=== PATIENT | female | born 1930 | race Caucasian/White ===

== ENCOUNTER 2017-03-26 17:57 | Inpatient (IN) | payer MEDICARE ==
[2017-03-26] MEDS ORDERED: DUONEB 0.5-3 MG/3 ml Neb IH ONE ×2 (19:01→19:37)
[2017-03-26] MEDS ORDERED: Sodium Chloride 0.9% 1000 ML 1,000 ML IV STA (19:01)
[2017-03-26 19:09] LABS: Mean Cell Volume 86.9 fl (78-100); Mean Platelet Volume 8.6 fl (6-9.5); Platelet Count 196 K/mm3 (150-450); Red Blood Count 3.88 M/mm3 (4.1-5.4); Red Cell Distribution Width 12.7 % (11.5-14.0); White Blood Count 8.8 K/mm3 (4.0-10.5)
[2017-03-26] MEDS ORDERED: Sodium Chloride 0.9% 1000 ML 1,000 ML ONE (19:09)
[2017-03-26 19:24] LABS: INR 1.22 (0.8-3.0); PROTIME 13.6 SECONDS (9.95-12.35)
--- NOTE | 2017-03-26 19:26 | ERPHSYRPT ---
- History of Present Illness Time Seen by Provider: 03/26/17 19:15 Source: patient, other (daughter) Exam Limitations: no limitations Patient Subjective Stated Complaint: PT states "I have a horrible cough and a bit of a hard time breathing." Triage Nursing Assessment: Pt alert and oriented X 3, skin pwd. Pt ambulates weakly with assistance, coughing, moaning, very hard of hearing, able to speak in clear full sentences Physician History: Pt is ex smoker, started coughing few days ago, coughed up phlegm, started having fever tonight according to her daughter. She is alert and oriented but has difficulty hearing, denies chest pain, vomiting, diarrhea, severe headaches , other complaints. She has slight difficulty breathing, but no severe distress , she has a history of heart murmurs, denies TX, CAD, CHF, other cardiac problems. Timing/Duration: day(s) (4) Activities at Onset: none Severity of Dyspnea-Max: moderate Severity of Dyspnea-Current: mild Possible Cause: occasional episodes Modifying Factors: Improves With: activity Associated Symptoms: cough, fever, loss of appetite, weakness Allergies/Adverse Reactions: No Known Drug Allergies Allergy (Verified 11/10/11 14:08) Home Medications: Diltiazem HCl 240 mg [Cardizem CD 240 MG] 240 mg PO DAILY 11/11/11 [History] Metoprolol Succinate 25 mg Xl* [Toprol-Xl 25MG Tablets] 25 mg PO BID 11/11/11 [ History] Multivitamin [Daily Multiple Vitamin] 1 tab PO DAILY 01/05/12 [History] Hx Tetanus, Diphtheria Vaccination/Date Given: No Hx Influenza Vaccination/Date Given: No Hx Pneumococcal Vaccination/Date Given: No Immunizations Up to Date: Yes - Review of Systems Constitutional: Fever, Chills Respiratory: Cough, Dyspnea, Wheezing Cardiac: No Symptoms All Other Systems: Reviewed and Negative - Past Medical History Pertinent Past Medical History: Yes Neurological History: No Pertinent History ENT History: Cataracts Cardiac History: Hypertension Respiratory History: Emphysema Endocrine Medical History: No Pertinent History Musculoskeletal History: Osteoarthritis, Osteoporosis GI Medical History: No Pertinent History History: No Pertinent History Psycho-Social History: No Pertinent History Female Reproductive Disorders: No Pertinent History - Past Surgical History Past Surgical History: No Neuro Surgical History: No Pertinent History Cardiac: No Pertinent History Respiratory: No Pertinent History Gastrointestinal: No Pertinent History Genitourinary: No Pertinent History Musculoskeletal: Amputation Female Surgical History: No Pertinent History - Social History Smoking Status: Former smoker Exposure to second hand smoke: No Drug Use: none Patient Lives Alone: Yes - Female History Hx Last Menstrual Period: none - Nursing Vital Signs Nursing Vital Signs: Initial Vital Signs Temperature 99.9 F 03/26/17 18:36 Pulse Rate 124 H 03/26/17 18:36 Respiratory Rate 20 03/26/17 18:36 Blood Pressure 127/73 03/26/17 18:36 O2 Sat by Pulse Oximetry 92 L 03/26/17 18:36 Pain Scale Pain Intensity 0 - Physical Exam General Appearance: no apparent distress Eye Exam: eyes nml inspection Ears, Nose, Throat Exam: normal ENT inspection, normal pharynx Neck Exam: normal inspection, non-tender, supple, No JVD Respiratory Exam: crackles/rales, rhonchi (diffuse, over both lower lung contreras) , No chest tenderness Cardiovascular/Chest Exam: murmur (2/6 left parasternal, systolic) Abdominal/Gastrointestinal Exam: soft, normal bowel sounds, No tenderness, No distention, No mass Extremity Exam: non-tender, No no calf tenderness, No no pedal edema Neurologic Exam: alert, oriented x 3, cooperative, normal mood/affect Skin Exam: normal color, warm, dry, No rash Lymphatic Exam: No adenopathy SpO2 Interpretation: borderline oxygenation SpO2: 92 Oxygen Delivery: Room Air - Course Nursing assessment & vital signs reviewed: Yes EKG Interpreted by Me: RATE, Sinus Tach, NORMAL AXIS, Non-specific ST Changes - Radiology Exams Chest X-ray Interpretation: Interpreted by me, No Pneumonia, No Pneumothorax, No Infiltrates Ordered Tests: Active Orders 24 hr Category Date Time Status Field Service Engineer STAT Care 03/26/17 19:00 Active EKG-ER Only STAT Care 03/26/17 19:02 Active Dunne [Catheter-Echo Dunne] STAT Care 03/26/17 20:34 Active IV Insertion STAT Care 03/26/17 19:00 Active Oxygen-ED Only VENTI-MASK 28% Care 03/26/17 21:01 Active Pulse Oximetry (ED) STAT Care 03/26/17 19:00 Active CHEST 1 VIEW (PORTABLE) Stat Exams 03/26/17 19:01 Taken BLOOD CULTURE Stat Lab 03/26/17 19:30 Received BNP [NT PRO BNP] Stat Lab 03/26/17 19:20 Completed CBC W DIFF Stat Lab 03/26/17 18:55 Completed CMP Stat Lab 03/26/17 18:55 Completed CULTURE,URINE Stat Lab 03/26/17 19:00 Ordered Lactic Acid Stat Lab 03/26/17 19:30 Completed Manual Differential NC Stat Lab 03/26/17 18:55 Completed PROTIME WITH INR Stat Lab 03/26/17 18:55 Completed PTT Stat Lab 03/26/17 18:55 Completed TROPONIN Q3H Lab 03/26/17 20:00 Completed TROPONIN Q3H Lab 03/26/17 22:30 Ordered UA Stat Lab 03/26/17 19:00 Ordered Oxygen NASAL CANNULA 2 lpm RT 03/26/17 21:02 Active Respiratory Nebulizer STAT RT 03/26/17 19:02 Active Medication Summary Generic Name Dose Route Start Last Admin Trade Name Freq PRN Reason Stop Dose Admin Potassium Chloride 40 meq 03/27/17 10:00 03/26/17 21:17 Potassium Chl 40 Meq/30 Ml Oral Solution PO 04/26/17 09:59 40 meq DAILY WANDER Administration Discontinued Medications Generic Name Dose Route Start Last Admin Trade Name Freq PRN Reason Stop Dose Admin Albuterol/Ipratropium 3 ml 03/26/17 19:01 03/26/17 19:39 Duoneb 0.5-3 Mg/3 Ml Neb IH 03/26/17 19:02 3 ml STAT ONE Administration Albuterol/Ipratropium Confirm 03/26/17 19:37 Duoneb 0.5-3 Mg/3 Ml Neb Administered 03/26/17 19:38 Dose 3 ml IH .STK-MED ONE Furosemide 40 mg 03/26/17 20:57 03/26/17 21:17 Lasix 40 Mg/4 Ml IV 03/26/17 20:58 40 mg STAT ONE Administration Furosemide Confirm 03/26/17 21:09 Lasix 40 Mg/4 Ml Administered 03/26/17 21:10 Dose 40 mg .ROUTE .STK-MED ONE Sodium Chloride 1,000 mls @ 999 mls/hr 03/26/17 19:01 03/26/17 19:12 Sodium Chloride 0.9% 1000 Ml IV 03/26/17 20:01 999 mls/hr .Q1H1M STA Administration Sodium Chloride Confirm 03/26/17 19:09 Sodium Chloride 0.9% 1000 Ml Administered 03/26/17 19:10 Dose 1,000 mls @ ud .ROUTE .STK-MED ONE Ceftriaxone Sodium/Dextrose 1 g in 50 mls @ 100 mls/hr 03/26/17 20:10 20:16 Rocephin 1 Gm-D5w 50 Ml Bag IV 03/26/17 20:39 100 mls/hr STAT STA Administration Azithromycin 500 mg in 250 mls @ 250 mls/hr 03/26/17 20:10 Zithromax 500 Mg/ 250 Ml Nacl Premix IV 03/26/17 21:09 STAT STA Azithromycin Confirm 03/26/17 20:13 Zithromax 500 Mg/ 250 Ml Nacl Premix Administered 03/26/17 20:14 Dose 500 mg in 250 mls @ ud IV .STK-MED ONE Ceftriaxone Sodium/Dextrose Confirm 03/26/17 20:13 Rocephin 1 Gm-D5w 50 Ml Bag Administered 03/26/17 20:14 Dose 1 g in 50 mls @ ud IV .STK-MED ONE Azithromycin Confirm 03/26/17 21:12 Zithromax 500 Mg/ 250 Ml Nacl Premix Administered 03/26/17 21:13 Dose 500 mg in 250 mls @ ud IV .STK-MED ONE Methylprednisolone Sodium Succinate 125 mg 03/26/17 20:09 03/26/17 20:16 Solu-Medrol 125 Mg IV 03/26/17 20:10 125 mg STAT ONE Administration Methylprednisolone Sodium Succinate Confirm 03/26/17 20:12 Solu-Medrol 125 Mg Administered 03/26/17 20:13 Dose 125 mg .ROUTE .STK-MED ONE Potassium Chloride Confirm 03/26/17 21:12 Klor Con 10 Meq Administered 03/26/17 21:13 Dose 30 meq PO .STK-MED ONE Lab/Rad Data: Laboratory Result Diagrams 03/26/17 18:55 03/26/17 18:55 Laboratory Results 03/26/17 03/26/17 03/26/17 Range/Units 20:00 19:30 19:30 WBC (4.0-10.5) K/mm3 RBC (4.1-5.4) M/mm3 Hgb (12.0-16.0) gm/dl Hct (35-47) % MCV (78-100) fl MCH (26-32) pg MCHC (32-36) g/dl RDW (11.5-14.0) % Plt Count (150-450) K/mm3 MPV (6-9.5) fl Segmented Neutrophils (36.0-66.0) % Lymphocytes (Manual) (24-44) % Monocytes (Manual) (0.0-12.0) % Differential Comment Platelet Estimate (NORMAL) INR (0.8-3.0) APTT (25.3-37.0) SECONDS Sodium (136-145) mEq/L Potassium (3.5-5.1) mEq/L Chloride (98-107) mEq/L Carbon Dioxide (21-32) mEq/L Anion Gap (5-15) MEQ/L BUN (9-20) mg/dL Creatinine (0.55-1.30) mg/dl Estimated GFR ML/MIN Glucose (70-110) MG/DL Lactic Acid 1.0 (0.4-2.0) Calcium (8.5-10.1) mg/dL Total Bilirubin (0.2-1.0) mg/dL AST (15-37) U/L ALT (12-78) U/L Alkaline Phosphatase (46-116) U/L Troponin I < 0.017 (0.000-0.056) ng/ml NT-Pro-B Natriuret Pep (0-450) pg/ml Serum Total Protein (6.4-8.2) gm/dL Albumin (3.4-5.0) g/dL Influenza Type A Ag NEGATIVE (NEGATIVE) Influenza Type B Ag NEGATIVE (NEGATIVE) RSV (PCR) NEGATIVE (Negative) 03/26/17 03/26/17 03/26/17 Range/Units 19:20 18:55 18:55 WBC (4.0-10.5) K/mm3 RBC (4.1-5.4) M/mm3 Hgb (12.0-16.0) gm/dl Hct (35-47) % MCV (78-100) fl MCH (26-32) pg MCHC (32-36) g/dl RDW (11.5-14.0) % Plt Count (150-450) K/mm3 MPV (6-9.5) fl Segmented Neutrophils (36.0-66.0) % Lymphocytes (Manual) (24-44) % Monocytes (Manual) (0.0-12.0) % Differential Comment Platelet Estimate (NORMAL) INR 1.22 (0.8-3.0) APTT 26.0 (25.3-37.0) SECONDS Sodium 130 L (136-145) mEq/L Potassium 3.1 L (3.5-5.1) mEq/L Chloride 95 L (98-107) mEq/L Carbon Dioxide 26.6 (21-32) mEq/L Anion Gap 11.1 (5-15) MEQ/L BUN 15 (9-20) mg/dL Creatinine 0.80 (0.55-1.30) mg/dl Estimated GFR > 60 ML/MIN Glucose 169 H (70-110) MG/DL Lactic Acid (0.4-2.0) Calcium 8.8 (8.5-10.1) mg/dL Total Bilirubin 1.60 H (0.2-1.0) mg/dL AST 17 (15-37) U/L ALT 10 L (12-78) U/L Alkaline Phosphatase 100 (46-116) U/L Troponin I (0.000-0.056) ng/ml NT-Pro-B Natriuret Pep 3056 H (0-450) pg/ml Serum Total Protein 7.5 (6.4-8.2) gm/dL Albumin 2.8 L (3.4-5.0) g/dL Influenza Type A Ag (NEGATIVE) Influenza Type B Ag (NEGATIVE) RSV (PCR) (Negative) 03/26/17 Range/Units 18:55 WBC 8.8 (4.0-10.5) K/mm3 RBC 3.88 L (4.1-5.4) M/mm3 Hgb 11.4 L (12.0-16.0) gm/dl Hct 33.7 L (35-47) % MCV 86.9 (78-100) fl MCH 29.3 (26-32) pg MCHC 33.8 (32-36) g/dl RDW 12.7 (11.5-14.0) % Plt Count 196 (150-450) K/mm3 MPV 8.6 (6-9.5) fl Segmented Neutrophils 84 H (36.0-66.0) % Lymphocytes (Manual) 9 L (24-44) % Monocytes (Manual) 7 (0.0-12.0) % Differential Comment NORMAL Platelet Estimate NORMAL (NORMAL) INR (0.8-3.0) APTT (25.3-37.0) SECONDS Sodium (136-145) mEq/L Potassium (3.5-5.1) mEq/L Chloride (98-107) mEq/L Carbon Dioxide (21-32) mEq/L Anion Gap (5-15) MEQ/L BUN (9-20) mg/dL Creatinine (0.55-1.30) mg/dl Estimated GFR ML/MIN Glucose (70-110) MG/DL Lactic Acid (0.4-2.0) Calcium (8.5-10.1) mg/dL Total Bilirubin (0.2-1.0) mg/dL AST (15-37) U/L ALT (12-78) U/L Alkaline Phosphatase (46-116) U/L Troponin I (0.000-0.056) ng/ml NT-Pro-B Natriuret Pep (0-450) pg/ml Serum Total Protein (6.4-8.2) gm/dL Albumin (3.4-5.0) g/dL Influenza Type A Ag (NEGATIVE) Influenza Type B Ag (NEGATIVE) RSV (PCR) (Negative) - Progress Progress: improved Air Movement: fair Progress Note: 03/26/17 21:30 Pt states, she feels better, she is slightly more tachypneic after 1000 ml NS, O2 sat: 92 %, started on nasal O2, iv antibiotics, she is afebrile, denies chest pain, no severe SOB or distress. I called Dr Harman, discussed this patients current condition and results, he agreed to admit her to regular Telemetry bed. I informed her and her family, they agreed. Discussed with : Kimani Will see patient in: hospital (full admit) - Departure Time of Disposition: 21:32 Departure Disposition: In-patient Admission Clinical Impression: Pneumonia Qualifiers: Pneumonia type: due to unspecified organism Laterality: unspecified laterality Lung location: unspecified part of lung Qualified Code(s): J18.9 - Pneumonia, unspecified organism CHF (congestive heart failure) Qualifiers: Congestive heart failure type: combined Congestive heart failure chronicity: acute Qualified Code(s): I50.41 - Acute combined systolic (congestive) and diastolic (congestive) heart failure Condition: Fair Critical Care Time: Yes Critical Care Time(excluding separately billable procedures): 30-74 minutes Referrals: LAYO ORTEGA [Primary Care Provider] - Instructions: Heart Failure
[2017-03-26 19:43] LABS: ALBUMIN 2.8 g/dL (3.4-5.0); ALKALINE PHOSPHATASE 100 U/L (46-116); ANION GAP 11.1 MEQ/L (5-15); BLOOD UREA NITROGEN 15 mg/dL (9-20); CHLORIDE 95 mEq/L (98-107); Carbon Dioxide 26.6 mEq/L (21-32); Glucose 169 MG/DL (70-110); Potassium 3.1 mEq/L (3.5-5.1); SGOT/AST 17 U/L (15-37); SGPT/ALT 10 U/L (12-78); SODIUM 130 mEq/L (136-145); Total Protein 7.5 gm/dL (6.4-8.2)
[2017-03-26 19:44] LABS: Mean Corpuscular Hemoglobin 29.3 pg (26-32)
[2017-03-26] MEDS ORDERED: solu-MEDROL 125 MG IV ONE (20:09)
[2017-03-26] MEDS ORDERED: Zithromax 500 MG/ 250 ML NaCl Premix 500 MG/250 ML IVPB IV STA (20:10)
[2017-03-26] MEDS ORDERED: ROCEPHIN 1 Gm-D5w 50 ml Bag** 1 G/50 ML IVPB IV STA (20:10)
[2017-03-26] MEDS ORDERED: solu-MEDROL 125 MG ONE (20:12)
[2017-03-26] MEDS ORDERED: Zithromax 500 MG/ 250 ML NaCl Premix 500 MG/250 ML IVPB IV ONE (20:13)
[2017-03-26] MEDS ORDERED: ROCEPHIN 1 Gm-D5w 50 ml Bag** 1 G/50 ML IVPB IV ONE (20:13)
[2017-03-26 20:45] LABS: Platelet Estimate NORMAL (NORMAL); Total Cells Counted 100
[2017-03-26] MEDS ORDERED: Lasix 40 MG/4 ML IV ONE (20:57)
[2017-03-26] MEDS ORDERED: Lasix 40 MG/4 ML ONE (21:09)
[2017-03-26] MEDS ORDERED: Zithromax 500 MG/ 250 ML NaCl Premix 0 MG/0 ML IVPB IV ONE (21:12)
[2017-03-26] MEDS ORDERED: Klor Con 10 MEQ PO ONE (21:12)
[2017-03-26] MEDS ORDERED: TYLENOL 325 MG PO PRN (21:38)
[2017-03-26 21:41] LABS: Bilirubin NEGATIVE (NEGATIVE); Blood TRACE NON-HEM Ery/ul (0-5); COMPLETE URINE MICROSCOPIC? YES; Collection Type CCMS; Glucose NEGATIVE (NEGATIVE); Leukocyte Esterase TRACE (NEGATIVE)
[2017-03-26 21:44] LABS: Bacteria FEW /HPF (NEGATIVE); Epithelial Cells FEW /HPF (FEW); Mucus SLIGHT /HPF (NEGATIVE); WBC 15-25 /HPF (0-5)
--- NOTE | 2017-03-26 22:29 | XRAY ---
Indication: Possible sepsis. Comparison: October 22, 2007. Portable chest now demonstrates mild right lung volume loss with right infrahilar infiltrate/atelectasis. Lesser new left infrahilar infiltrate/atelectasis. No large effusion. Heart is not enlarged for AP portable technique. Bony thorax intact again without osteopenia and degenerative changes. Impression: New bilateral infrahilar infiltrates versus atelectasis. Correlate clinically.
[2017-03-27 06:27] LABS: Mean Cell Volume 87.5 fl (78-100); Mean Platelet Volume 8.9 fl (6-9.5); Platelet Count 212 K/mm3 (150-450); Red Blood Count 3.91 M/mm3 (4.1-5.4); Red Cell Distribution Width 12.7 % (11.5-14.0); White Blood Count 7.3 K/mm3 (4.0-10.5)
[2017-03-27 06:48] LABS: Mean Corpuscular Hemoglobin 29.6 pg (26-32)
[2017-03-27 06:53] LABS: ANION GAP 13.1 MEQ/L (5-15); BLOOD UREA NITROGEN 14 mg/dL (9-20); CHLORIDE 95 mEq/L (98-107); Carbon Dioxide 27.7 mEq/L (21-32); Glucose 214 MG/DL (70-110); Potassium 3.4 mEq/L (3.5-5.1); SODIUM 132 mEq/L (136-145)
--- NOTE | 2017-03-27 09:08 | PCM.HP ---
History of Present Illness - Chief Complaint Chief Complaint: UTI, Pneumonia History of Present Illness: is a 86 year old female who presented to the emergency department complaining of nonproductive cough and difficulty breathing. She has been unable to produce sputum, no fever, denies vomiting or diarrhea. Denies urinary hesitancy, frequency or dysuria. Has a known murmur and sees Dr Gomes but no hx of chf or LA in the past. - Review of Systems Constitutional: No Fever, No Chills Respiratory: Cough, Short Of Breath Cardiac: No Chest Pain, No Edema Abdominal/Gastrointestinal: No Abdominal Pain, No Nausea, No Vomiting, No Diarrhea Skin: No Rash All Other Systems: Reviewed and Negative Medications & Allergies Home Medications: Home Medication List Diltiazem HCl 240 mg [Cardizem CD 240 MG] 240 mg PO DAILY 11/11/11 [History Confirmed 03/26/17] Metoprolol Succinate 25 mg Xl* [Toprol-Xl 25MG Tablets] 25 mg PO BID 11/11/11 [ History Confirmed 03/26/17] Multivitamin [Daily Multiple Vitamin] 1 tab PO DAILY 01/05/12 [History Confirmed 03/26/17] Allergies/Adverse Reactions: Allergies Allergy/AdvReac Type Severity Reaction Status Date / Time No Known Drug Allergies Allergy Verified 11/10/11 14:08 - Past Medical History Past Medical History: Yes Neurological History: No Pertinent History ENT History: Cataracts Cardiac History: Hypertension, Other Respiratory History: Emphysema Endocrine Medical History: No Pertinent History Musculoskelatal History: Osteoarthritis, Osteoporosis GI Medical History: No Pertinent History History: No Pertinent History Pyscho-Social History: No Pertinent History Reproductive Disorders: No Pertinent History Comment: heart murmur - Female History Hx Last Menstrual Period: none - Past Surgical History Past Surgical History: No Neuro Surgical History: No Pertinent History Cardiac History: No Pertinent History Respiratory Surgery: No Pertinent History GI Surgical History: No Pertinent History Genitourinary Surgical Hx: No Pertinent History Musculskeletal Surgical Hx: No Pertinent History Female Surgical History: No Pertinent History - Social History Smoking Status: Former smoker Exposure to second hand smoke: No Alcohol: Rarely Drug Use: none - Physical Exam Vital Signs: Vital Signs - 24 hr Temp Pulse Resp BP Pulse Ox 03/27/17 07:18 97.8 F 90 20 137/63 96 03/27/17 06:00 24 12/09/17 05:00 97.4 F 96 H 24 141/74 95 03/27/17 01:45 18 03/26/17 22:54 98.7 F 131 H 18 124/65 95 03/26/17 21:33 92 L 03/26/17 20:50 98.5 F 124 H 24 96 03/26/17 20:40 98.5 F 123 H 22 115/67 96 03/26/17 19:50 98.7 F 119 H 24 133/72 95 03/26/17 19:32 110 H 26 H 127/73 92 L 03/26/17 19:31 92 L 03/26/17 19:30 113 H 26 H 99 03/26/17 18:36 99.9 F 124 H 20 127/73 92 L Oxygen-Last 24 hours O2 Percentage 2 Liters = 28% O2 Percentage 2 Liters = 28% O2 Percentage 2 Liters = 28% O2 Percentage 2 Liters = 28% General Appearance: no apparent distress Neurologic Exam: alert, oriented x 3 Respiratory Exam: crackles/rales, rhonchi Cardiovascular Exam: regular rate/rhythm, normal heart sounds, normal peripheral pulses Gastrointestinal/Abdomen Exam: soft, normal bowel sounds, No tenderness, No mass Extremity Exam: normal inspection, normal range of motion, pelvis stable Results - Labs Lab/Micro Results: Lab Results-Last 24 Hours 03/27/17 03/27/17 Range/Units 05:20 05:20 WBC 7.3 (4.0-10.5) K/mm3 RBC 3.91 L (4.1-5.4) M/mm3 Hgb 11.6 L (12.0-16.0) gm/dl Hct 34.2 L (35-47) % MCV 87.5 (78-100) fl MCH 29.6 (26-32) pg MCHC 33.9 (32-36) g/dl RDW 12.7 (11.5-14.0) % Plt Count 212 (150-450) K/mm3 MPV 8.9 (6-9.5) fl Sodium 132 L (136-145) mEq/L Potassium 3.4 L (3.5-5.1) mEq/L Chloride 95 L (98-107) mEq/L Carbon Dioxide 27.7 (21-32) mEq/L Anion Gap 13.1 (5-15) MEQ/L BUN 14 (9-20) mg/dL Creatinine 0.72 (0.55-1.30) mg/dl Estimated GFR > 60 ML/MIN Glucose 214 H (70-110) MG/DL Calcium 8.8 (8.5-10.1) mg/dL NT-Pro-B Natriuret Pep 3349 H (0-450) pg/ml - Other Procedures and Tests Respiratory Therapy 03/26/17 23:35 RT Screen per Nursing Assess ONCE Assessment/Plan (1) Pneumonia Current Visit: Yes Status: Acute Qualifiers: Pneumonia type: due to unspecified organism Laterality: unspecified laterality Lung location: unspecified part of lung Qualified Code(s): J18.9 - Pneumonia, unspecified organism Assessment & Plan: continue rocephin and zithromax, clinically consistent with pneumonia. do not believe she has acute chf and no history of such, clinically not volume overloaded in spite of markedly elevated bnp. Code(s): J18.9 - PNEUMONIA, UNSPECIFIED ORGANISM (2) UTI (urinary tract infection) Current Visit: Yes Status: Acute Assessment & Plan: covering with rocephin, wait on urine culture Code(s): N39.0 - URINARY TRACT INFECTION, SITE NOT SPECIFIED
[2017-03-27] MEDS: Altace 1.25 MG PO SCH (09:16)
[2017-03-27] MEDS ORDERED: MULTIVITAMIN PO SCH (10:00)
[2017-03-27] MEDS ORDERED: FLUZONE HIGH-DOSE 2017-18 SYR IM ONE (10:00)
[2017-03-27] MEDS ORDERED: POTASSIUM CHL 40 MEQ/30 ML ORAL SOLUTION PO SCH (10:00)
[2017-03-27] MEDS ORDERED: POTASSIUM CHLORIDE 20 MEQ POWDER FOR ORAL SOL PO SCH (10:00)
[2017-03-27] MEDS ORDERED: Lasix 20 MG/2 ML IV SCH (10:00)
[2017-03-27] MEDS: ENOXAPARIN SODIUM SQ SCH (10:14)
[2017-03-27] MEDS: Toprol-Xl 25MG Tablets PO SCH ×2 (10:14→21:31)
[2017-03-27] MEDS: Cardizem CD 240 MG PO SCH (10:14)
[2017-03-27] MEDS: THERAGRAN MULTIVITAMIN PO SCH (10:14)
--- NOTE | 2017-03-27 11:25 | XRAY ---
Indication: CHF. Comparison: One day earlier. Portable chest unchanged again demonstrating infrahilar infiltrates/atelectasis again right greater than left. Heart is not enlarged for AP portable technique. No new cardiopulmonary abnormalities.
[2017-03-27] MEDS: ROCEPHIN 1 Gm-D5w 50 ml Bag** 1 G/50 ML IVPB IV SCH (19:47)
[2017-03-27] MEDS: Zithromax 500 MG/ 250 ML NaCl Premix 500 MG/250 ML IVPB IV SCH (21:31)
[2017-03-28 05:42] LABS: Eosinophil % 0.1 % (0.00-5.0); Granulocytes % 86.5 % (36.0-66.0); Lymphocytes % 6.9 % (24.0-44.0); Mean Cell Volume 87.7 fl (78-100); Mean Corpuscular Hemoglobin 29.2 pg (26-32); Monocytes % 6.5 % (0.0-12.0); Platelet Count 242 K/mm3 (150-450); Red Blood Count 3.73 M/mm3 (4.1-5.4); Red Cell Distribution Width 12.8 % (11.5-14.0); White Blood Count 11.7 K/mm3 (4.0-10.5)
[2017-03-28 06:10] LABS: ANION GAP 8.8 MEQ/L (5-15); BLOOD UREA NITROGEN 22 mg/dL (9-20); CHLORIDE 95 mEq/L (98-107); Carbon Dioxide 30.8 mEq/L (21-32); Glucose 118 MG/DL (70-110); MAGNESIUM 1.5 mg/dL (1.8-2.4); Potassium 3.1 mEq/L (3.5-5.1); SODIUM 132 mEq/L (136-145)
--- NOTE | 2017-03-28 08:19 | PCM.NOTE ---
Date and Time: 03/28/17814 Subjective Assessment: patient reports she is feeling a little better today. she is tolerating po intake. Objective Exam General Appearance: no apparent distress, alert Respiratory Exam: rhonchi Cardiovascular Exam: regular rate/rhythm Gastrointestinal/Abdomen Exam: soft, No tenderness, No mass Extremity Exam: normal inspection, normal range of motion OBJECTIVE DATA Vital Signs: Vital Signs - 24 hr Temp Pulse Resp BP Pulse Ox 03/28/17 07:20 98.5 F 66 22 103/57 96 03/28/17 04:00 97.5 F 77 17 108/55 98 03/28/17 00:00 20 03/27/17 23:46 86 20 94 L 03/27/17 23:18 97.9 F 77 20 115/56 97 03/27/17 20:00 20 03/27/17 19:51 98.1 F 90 20 118/58 98 03/27/17 17:00 97.5 F 83 18 115/57 95 03/27/17 12:00 18 03/27/17 10:59 98 F 119 H 18 125/66 96 03/27/17 10:00 18 Oxygen-Last 24 hours O2 Percentage 2 Liters = 28% O2 Percentage 2 Liters = 28% O2 Percentage 2 Liters = 28% O2 Percentage 2 Liters = 28% O2 Percentage 2 Liters = 28% O2 Percentage 2 Liters = 28% Pain Assessment - Last Documented Pain Intensity 0 Pain Scale Used 0-10 Pain Scale Intake and Output: Intake & Output 03/25/17 03/26/17 03/27/17 03/28/17 11:59 11:59 11:59 11:59 Intake Total 280 480 Output Total 2300 475 Balance -2019 08 Weight 54.034 kg 54.686 kg Lab Results: Accuchecks Date 03/27/17 Date 03/27/17 Date 03/27/17 Time 22:00 Time 16:30 Time 11:30 Accucheck Value: 258 Accucheck Value: 139 Accucheck Value: 259 Lab Results-Last 24 Hours 03/28/17 03/28/17 Range/Units 04:45 04:45 WBC 11.7 H (4.0-10.5) K/mm3 RBC 3.73 L (4.1-5.4) M/mm3 Hgb 10.9 L (12.0-16.0) gm/dl Hct 32.7 L (35-47) % MCV 87.7 (78-100) fl MCH 29.2 (26-32) pg MCHC 33.3 (32-36) g/dl RDW 12.8 (11.5-14.0) % Plt Count 242 (150-450) K/mm3 MPV 9.0 (6-9.5) fl Gran % 86.5 H (36.0-66.0) % Lymphocytes % 6.9 L (24.0-44.0) % Monocytes % 6.5 (0.0-12.0) % Eosinophils % 0.1 (0.00-5.0) % Basophils % 0.0 (0.0-0.4) % Basophils # 0 (0-0.4) Sodium 132 L (136-145) mEq/L Potassium 3.1 L (3.5-5.1) mEq/L Chloride 95 L (98-107) mEq/L Carbon Dioxide 30.8 (21-32) mEq/L Anion Gap 8.8 (5-15) MEQ/L BUN 22 H (9-20) mg/dL Creatinine 0.78 (0.55-1.30) mg/dl Estimated GFR > 60 ML/MIN Glucose 118 H (70-110) MG/DL Calcium 8.5 (8.5-10.1) mg/dL Magnesium 1.5 L (1.8-2.4) mg/dL NT-Pro-B Natriuret Pep 1975 H (0-450) pg/ml Assessment/Plan (1) Pneumonia Current Visit: Yes Status: Acute Qualifiers: Pneumonia type: due to unspecified organism Laterality: unspecified laterality Lung location: unspecified part of lung Qualified Code(s): J18.9 - Pneumonia, unspecified organism Assessment & Plan: continue rocephin/zithromax, improved Code(s): J18.9 - PNEUMONIA, UNSPECIFIED ORGANISM (2) UTI (urinary tract infection) Current Visit: Yes Status: Acute Assessment & Plan: continue rocephin, awaiting urine culture results Code(s): N39.0 - URINARY TRACT INFECTION, SITE NOT SPECIFIED
[2017-03-28] MEDS: Cardizem CD 240 MG PO SCH (10:20)
[2017-03-28] MEDS: ENOXAPARIN SODIUM SQ SCH (10:20)
[2017-03-28] MEDS: Altace 1.25 MG PO SCH (10:20)
[2017-03-28] MEDS: Toprol-Xl 25MG Tablets PO SCH ×2 (10:20→22:22)
[2017-03-28] MEDS: THERAGRAN MULTIVITAMIN PO SCH (10:20)
[2017-03-28] MEDS: Klor Con 10 MEQ PO SCH ×2 (10:20→22:22)
[2017-03-28] MEDS: ROCEPHIN 1 Gm-D5w 50 ml Bag** 1 G/50 ML IVPB IV SCH (19:25)
[2017-03-28] MEDS: Zithromax 500 MG/ 250 ML NaCl Premix 500 MG/250 ML IVPB IV SCH (20:26)
[2017-03-29 06:12] LABS: Eosinophil % 0.5 % (0.00-5.0); Granulocytes % 79.1 % (36.0-66.0); Mean Cell Volume 87.2 fl (78-100); Monocytes % 7.4 % (0.0-12.0); Platelet Count 255 K/mm3 (150-450); Red Blood Count 3.67 M/mm3 (4.1-5.4); Red Cell Distribution Width 12.8 % (11.5-14.0)
[2017-03-29 06:23] LABS: ANION GAP 11.7 MEQ/L (5-15); BLOOD UREA NITROGEN 15 mg/dL (9-20); CHLORIDE 96 mEq/L (98-107); Carbon Dioxide 28.4 mEq/L (21-32); Glucose 108 MG/DL (70-110); Potassium 3.5 mEq/L (3.5-5.1); SODIUM 133 mEq/L (136-145)
[2017-03-29 06:47] LABS: Mean Corpuscular Hemoglobin 29.1 pg (26-32)
[2017-03-29 07:14] VITALS: BP 118/58; PULSE 68; O2SAT 94
--- NOTE | 2017-03-29 08:28 | PCM.DCORD ---
- Discharge Discharge Date: 03/29/17 Condition: Stable Prescriptions: New Amox Tr/Potass Clav. 875 mg [Augmentin 875-125 Tablet] 875 mg PO BID 7 Days #14 tablet Continue Metoprolol Succinate 25 mg Xl* [Toprol-Xl 25MG Tablets] 25 mg PO BID Diltiazem HCl 240 mg [Cardizem CD 240 MG] 240 mg PO DAILY Multivitamin [Daily Multiple Vitamin] 1 tab PO DAILY Instructions: Heart Failure Follow up with: LAYO ORTEGA [Primary Care Provider] - ALEXYS BOBBY [ACTIVE STAFF] - Call for Appointment
[2017-03-29] MEDS: Altace 1.25 MG PO SCH (08:48)
[2017-03-29] MEDS: Klor Con 10 MEQ PO SCH (08:48)
[2017-03-29] MEDS: Cardizem CD 240 MG PO SCH (08:48)
[2017-03-29] MEDS: Toprol-Xl 25MG Tablets PO SCH (08:48)
[2017-03-29] MEDS: THERAGRAN MULTIVITAMIN PO SCH (08:48)
[2017-03-29] MEDS: ENOXAPARIN SODIUM SQ SCH (08:49)
--- NOTE | 2017-03-29 13:19 | DS ---
DISCHARGE DIAGNOSIS: PNEUMONIA. HISTORY: The patient is an 86 year-old white female who presented to the emergency room with complaint of a horrible cough and a hard time breathing. The patient was evaluated in the emergency room and diagnosed with pneumonia. Admitted to the hospital on pneumonia pathway. HOSPITAL COURSE: The patient was admitted to the hospital and began on IV Rocephin and Zithromax. Her initial white blood cell count was not significantly elevated although the chest x-ray did show some atelectasis or infiltrate right greater than left. The patient was also placed on supplemental oxygen and she did have an elevation in her Pro-BNP level when she was initially admitted. Her most recent echocardiogram showed ejection fraction of 50-60% back in August. The patient physical findings did show some rales in both sides although the patient denies coughing up anything presently. Her most recent white blood cell count was 8,000, hemoglobin 10.7, PLT count 255,000 and 79.1% granulocytes. Her metabolic panel showed a glucose 108, BUN 15, creatinine 0.74. Sodium slightly low at 133. Cultures had been negative so far. By the morning of 03/29/2017 with discussion of her family and the patient, it was felt that she was ready for discharge home again. She was discharged home on Augmentin 875 mg twice a day to follow up in the office in one week. She was also asked to see her professional services consultant, Dr. Gomes, in the not to distant future. She does have a known valvular abnormality as well as the elevation of ProBNP levels although she has not had much leg swelling at this time. There is still some concern for some cardiac component to her illness recently. The patient and family were instructed to call us if she has any further problems of increasing shortness of breath upon returning home otherwise we will see her in the office in one week.
== END 2017-03-29 09:57 | disposition home or self-care (01) | DRG 194 ==
LOC: ED 17:57 → MED SURG 22:18
PROVIDERS: ADMIT Family Medicine; ATTEND Family Medicine
DX: J18.9 Pneumonia, unspecified organism (principal); N39.0 Urinary tract infection, site not specified; I10 Essential (primary) hypertension; M81.0 Age-related osteoporosis without current pathological fracture; Z87.891 Personal history of nicotine dependence
CPT/HCPCS: 36000; 36415; 51702; 71010; 80048; 80053; 81000; 82962; 83605; 83735; 83880; 84484; 85025; 85027; 85610; 85730; 87040; 87086; 87631; 93005; 93041; 94760; 96360; 96365; 99285; G0008; J0456; J0696; J1650; J1940; J2930; A9270-GY